=== PATIENT | female | born 1930 | race Caucasian/White ===

== ENCOUNTER 2016-08-15 05:24 | Inpatient (IN) | payer MEDICARE, BC ==
[2016-08-15] MEDS: SCOPOLAMINE 1.5MG PATCH TD SCH (05:59)
[2016-08-15] MEDS ORDERED: LACTATED RINGERS 1,000 ML IV ONE (06:00)
[2016-08-15] MEDS ORDERED: BUPIVACAINE LIPOSOME 20 ML SUS ONE (06:55)
[2016-08-15] MEDS ORDERED: BUPIVACAINE HCL 0.25% MPF 10 ML SOL INFIL ONE ×2 (06:55)
[2016-08-15] MEDS ORDERED: SODIUM CHLORIDE 20 ML 20 ML ONE (06:55)
[2016-08-15] MEDS ORDERED: LACTATED RINGERS 1,000 ML IV SCH (07:00)
[2016-08-15] MEDS ORDERED: DEXAMETHASONE 20 MG/5 ML (4 MG/ML SOL) ONE ×2 (07:31→07:34)
[2016-08-15] MEDS ORDERED: METOCLOPRAMIDE HYDROCHLORIDE 5 MG/ML SOL ONE (07:31)
[2016-08-15] MEDS ORDERED: ONDANSETRON HCL 4 MG/2 ML SOL ONE (07:31)
[2016-08-15] MEDS ORDERED: LIDOCAINE HCL 1% MPF SOL ONE (07:31)
[2016-08-15] MEDS ORDERED: MIDAZOLAM 2 MG/2 ML SOL ONE (07:31)
[2016-08-15] MEDS ORDERED: PROPOFOL 500 MG/50 ML EMU IV ONE (07:31)
[2016-08-15] MEDS ORDERED: KETAMINE HYDROCHLORIDE 50 MG/ML SOL ONE (07:34)
[2016-08-15] MEDS ORDERED: MORPHINE SULFATE 0.5 MG/ML SOL ONE (07:34)
[2016-08-15] MEDS ORDERED: CEFAZOLIN SODIUM 1 GM PDS ONE (08:26)
[2016-08-15] MEDS ORDERED: EPHEDRINE SULFATE 50 MG/ML SOL ONE (08:26)
[2016-08-15] MEDS ORDERED: PHENYLEPHRINE HYDROCHLORIDE 10 MG/ML SOL ONE (08:44)
[2016-08-15] MEDS: TRANEXAMIC ACID 100 MG/ML SOL ONE ×2 (09:48→09:55)
[2016-08-15] MEDS ORDERED: PROPOFOL 10 MG/ML EMU IV ONE (09:50)
[2016-08-15] MEDS ORDERED: DIAZEPAM 5 MG TAB PO PRN (10:06)
[2016-08-15] MEDS ORDERED: HYDROMORPHONE HCL 2 MG/ML 1 ML SOL IV PRN (10:06)
[2016-08-15] MEDS ORDERED: SODIUM CHLORIDE 0.9% 500 ML 500 ML IV PRN (10:06)
[2016-08-15] MEDS ORDERED: ZOLPIDEM TARTRATE 5 MG TAB PO PRN (10:06)
[2016-08-15] MEDS ORDERED: FLEET ENEMA PR PRN (10:06)
[2016-08-15] MEDS ORDERED: ONDANSETRON HCL 4 MG/2 ML SOL IV PRN (10:06)
[2016-08-15] MEDS ORDERED: BISACODYL 10 MG SUP PR PRN (10:06)
[2016-08-15] MEDS ORDERED: MAGNESIUM HYDROXIDE 30 ML SUS PO PRN (10:06)
[2016-08-15] MEDS ORDERED: ALUMINUM/MAGNESIUM 30 ML SUS PO PRN (10:06)
[2016-08-15] MEDS ORDERED: ONDANSETRON 4 MG ODT BU PRN (10:06)
[2016-08-15] MEDS ORDERED: CEFAZOLIN (PREMIX) 1 GM 1 GM/50 ML SOL IV SCH (10:15)
[2016-08-15] MEDS: SODIUM CHLORIDE 0.9% FLUSH 10 ML SOL IV SCH ×2 (11:51→18:56)
[2016-08-15] MEDS: CEFAZOLIN (PREMIX) 1 GM 1 GM/50 ML SOL IV SCH (16:10)
[2016-08-15] MEDS: PANTOPRAZOLE SODIUM 40 MG ECT PO SCH (20:15)
[2016-08-15] MEDS: GABAPENTIN 300 MG CAP PO SCH (20:15)
[2016-08-15] MEDS: SENNOSIDES A AND B 8.6 MG TAB PO SCH (20:15)
[2016-08-15] MEDS: ATORVASTATIN 10 MG TAB PO SCH (20:15)
[2016-08-15] MEDS: FLECAINIDE ACETATE 50 MG TAB PO SCH (20:16)
[2016-08-15] MEDS: METOPROLOL SUCCINATE 50 MG TER PO SCH (20:16)
[2016-08-15] MEDS: APAP/OXYCODONE 325/5 TAB PO PRN (20:21)
[2016-08-16] MEDS: CEFAZOLIN (PREMIX) 1 GM 1 GM/50 ML SOL IV SCH (00:43)
[2016-08-16] MEDS: SODIUM CHLORIDE 0.9% FLUSH 10 ML SOL IV SCH ×4 (01:21→20:46)
[2016-08-16] MEDS: LEVOTHYROXINE SODIUM 112 MCG TAB PO SCH (06:41)
[2016-08-16] MEDS: APAP/OXYCODONE 325/5 TAB PO PRN ×5 (06:44→21:46)
[2016-08-16 07:20] LABS: MEAN CORPUSCULAR HGB CONC 34.3 gm/dl (32.0-36.0)
[2016-08-16] MEDS: ENOXAPARIN 40 MG SOL SC SCH (09:03)
[2016-08-16] MEDS: LORATADINE 10 MG TAB PO SCH (09:03)
[2016-08-16] MEDS: PANTOPRAZOLE SODIUM 40 MG ECT PO SCH ×2 (09:03→20:47)
[2016-08-16] MEDS: FERROUS SULFATE 325 MG TAB PO SCH (09:03)
[2016-08-16] MEDS: HYDROCHLOROTHIAZIDE 25 MG TAB PO SCH (09:03)
[2016-08-16] MEDS: GABAPENTIN 300 MG CAP PO SCH ×2 (09:03→20:47)
[2016-08-16] MEDS: FLECAINIDE ACETATE 50 MG TAB PO SCH ×2 (09:03→20:48)
[2016-08-16] MEDS: WARFARIN SODIUM 2.5 MG TAB PO SCH (18:10)
[2016-08-16] MEDS: ATORVASTATIN 10 MG TAB PO SCH (20:46)
[2016-08-16] MEDS: SENNOSIDES A AND B 8.6 MG TAB PO SCH (20:47)
[2016-08-16] MEDS: METOPROLOL SUCCINATE 50 MG TER PO SCH (20:48)
[2016-08-17] MEDS: SODIUM CHLORIDE 0.9% FLUSH 10 ML SOL IV SCH ×3 (03:04→17:56)
[2016-08-17] MEDS ORDERED: PATIENT EDUCATION 1 MISC PRN (05:04)
[2016-08-17] MEDS: LEVOTHYROXINE SODIUM 112 MCG TAB PO SCH (06:57)
[2016-08-17] MEDS: APAP/OXYCODONE 325/5 TAB PO PRN (06:58)
[2016-08-17] MEDS: FLECAINIDE ACETATE 50 MG TAB PO SCH ×2 (08:54→21:16)
[2016-08-17] MEDS: GABAPENTIN 300 MG CAP PO SCH ×2 (08:54→21:15)
[2016-08-17] MEDS: PANTOPRAZOLE SODIUM 40 MG ECT PO SCH ×2 (08:54→21:15)
[2016-08-17] MEDS: ENOXAPARIN 40 MG SOL SC SCH (08:55)
[2016-08-17] MEDS: FERROUS SULFATE 325 MG TAB PO SCH (08:55)
[2016-08-17] MEDS: HYDROCHLOROTHIAZIDE 25 MG TAB PO SCH (08:55)
[2016-08-17] MEDS: LORATADINE 10 MG TAB PO SCH (08:55)
[2016-08-17] MEDS: ACETAMINOPHEN 325 MG PO PRN ×2 (11:23→20:06)
[2016-08-17] MEDS: WARFARIN SODIUM 2.5 MG TAB PO SCH (17:51)
[2016-08-17] MEDS: TRAMADOL HYDROCHLORIDE 50 MG TAB PO PRN (21:13)
[2016-08-17] MEDS: ATORVASTATIN 10 MG TAB PO SCH (21:14)
[2016-08-17] MEDS: SENNOSIDES A AND B 8.6 MG TAB PO SCH (21:16)
[2016-08-17] MEDS: METOPROLOL SUCCINATE 50 MG TER PO SCH (21:17)
[2016-08-18] MEDS: TRAMADOL HYDROCHLORIDE 50 MG TAB PO PRN ×2 (02:22→09:51)
[2016-08-18] MEDS: SODIUM CHLORIDE 0.9% FLUSH 10 ML SOL IV SCH ×2 (02:23→11:42)
[2016-08-18] MEDS: SCOPOLAMINE 1.5MG PATCH TD SCH (06:00)
[2016-08-18] MEDS: LEVOTHYROXINE SODIUM 112 MCG TAB PO SCH (07:22)
[2016-08-18 07:28] LABS: MEAN CORPUSCULAR HGB CONC 35.9 gm/dl (32.0-36.0)
[2016-08-18] MEDS: PANTOPRAZOLE SODIUM 40 MG ECT PO SCH (09:50)
[2016-08-18] MEDS: LORATADINE 10 MG TAB PO SCH (09:50)
[2016-08-18] MEDS: FERROUS SULFATE 325 MG TAB PO SCH (09:50)
[2016-08-18] MEDS: GABAPENTIN 300 MG CAP PO SCH (09:50)
[2016-08-18] MEDS: FLECAINIDE ACETATE 50 MG TAB PO SCH (09:50)
[2016-08-18] MEDS: HYDROCHLOROTHIAZIDE 25 MG TAB PO SCH (09:51)
[2016-08-18] MEDS: ENOXAPARIN 40 MG SOL SC SCH (09:59)
[2016-08-18 12:27] VITALS: RESP 20
[2016-08-18] MEDS: ACETAMINOPHEN 325 MG PO PRN (13:35)
[2016-08-18 15:21] VITALS: BP 159/65; PULSE 69; TEMP 97.6; O2SAT 97
== END 2016-08-18 13:30 | disposition swing bed (61) | DRG 470 ==
LOC: ACUTE CARE 05:24
PROVIDERS: ADMIT Orthopaedic Surgery; ATTEND Orthopaedic Surgery
PROC: F01ZDFZ Gait and/or Balance Assessment using Assistive, Adaptive, Supportive or Protective Equipment (ICD-10-PCS; 2016-08-15)
PROC: F01ZCZZ Transfer Assessment (ICD-10-PCS; 2016-08-15)
PROC: F01ZBZZ Bed Mobility Assessment (ICD-10-PCS; 2016-08-15)
PROC: F02Z1ZZ Dressing Assessment (ICD-10-PCS; 2016-08-15)
PROC: F02Z0ZZ Bathing/Showering Assessment (ICD-10-PCS; 2016-08-15)
PROC: 0SR9049 Replacement of Right Hip Joint with Ceramic on Polyethylene Synthetic Substitute, Cemented, Open Approach (ICD-10-PCS; principal; 2016-08-15 08:00)
DX: M16.11 Unilateral primary osteoarthritis, right hip (principal); Z96.641 Presence of right artificial hip joint; I48.2 Chronic atrial fibrillation; M85.88 Other specified disorders of bone density and structure, other site; E03.9 Hypothyroidism, unspecified; K21.9 Gastro-esophageal reflux disease without esophagitis; I10 Essential (primary) hypertension; R41.0 Disorientation, unspecified
CPT/HCPCS: 36415; 73501; 73502; 85027; 85049; 85610; 94150; 94640; 94760; 99070; J0690; J1100; J1650; J2250; J2275; J2405; J2765; A6219; A6232; A6402; J2001; J2704

== ENCOUNTER 2016-09-13 08:21 | Emergency (ER) | payer MEDICARE, BC ==
[2016-09-13 08:33] VITALS: TEMP 97.8
[2016-09-13 08:43] LABS: BASOPHILS % (AUTO) 1 % (0-3); EOSINOPHILS % (AUTO) 4 % (0-9); HEMATOCRIT 36 % (35-47); MEAN CORPUSCULAR HGB CONC 34.5 gm/dl (32.0-36.0); MEAN CORPUSCULAR VOLUME 82 fL (81-99); MONOCYTES % (AUTO) 11.3 % (0-12)
[2016-09-13 09:01] LABS: ALBUMIN 3.2 gm/dl (3.4-5.0); ALT 29 IU/L (14-63); CALCIUM 8.9 mg/dl (8.5-10.1); GLOM FILT RATE 55 mL/min (>60); POTASSIUM 3.7 mMol/L (3.5-5.1); SODIUM 142 mMol/L (136-145)
[2016-09-13] MEDS ORDERED: METOPROLOL TARTRATE 5 MG/5 ML SOL IV ONE ×2 (09:14→09:16)
[2016-09-13] MEDS ORDERED: SODIUM CHLORIDE 0.9% FLUSH 10 ML SOL IV PRN (09:23)
[2016-09-13] MEDS ORDERED: SODIUM CHLORIDE 0.9% 1000ML 1,000 ML IV ONE (09:42)
[2016-09-13] MEDS ORDERED: DILTIAZEM 5 MG/ML SOL IV ONE ×3 (09:55→11:28)
[2016-09-13 11:31] VITALS: BP 98/47; PULSE 82; RESP 20; O2SAT 92
== END 2016-09-13 12:50 | disposition home or self-care (01) | DRG 310 ==
LOC: ED 08:21
DX: I48.92 Unspecified atrial flutter (principal); Z79.01 Long term (current) use of anticoagulants
CPT/HCPCS: 80053; 84484; 85025; 85610; 93005; 99285

== ENCOUNTER 2016-09-27 10:20 | Emergency (ER) | payer MEDICARE, BC ==
[2016-09-27] MEDS ORDERED: SODIUM CHLORIDE 0.9% FLUSH 10 ML SOL IV PRN (10:24)
[2016-09-27] MEDS ORDERED: NITROGLYCERIN 0.4 MG TAB SL PRN (10:24)
[2016-09-27] MEDS ORDERED: ASPIRIN 81 MG CHEWABLE CTB PO STA (10:24)
[2016-09-27] MEDS ORDERED: ASPIRIN 81 MG CHEWABLE CTB ONE (10:25)
[2016-09-27 10:29] LABS: BASOPHILS % (AUTO) 0 % (0-3); EOSINOPHILS % (AUTO) 3 % (0-9); HEMATOCRIT 35 % (35-47); MEAN CORPUSCULAR HGB CONC 34.2 gm/dl (32.0-36.0); MEAN CORPUSCULAR VOLUME 84 fL (81-99); MONOCYTES % (AUTO) 10.2 % (0-12); NEUTROPHILS % (AUTO) 72.4 % (37-80)
[2016-09-27 10:45] LABS: GLOM FILT RATE 58 mL/min (>60); POTASSIUM 3.8 mMol/L (3.5-5.1); SODIUM 140 mMol/L (136-145)
[2016-09-27 12:49] VITALS: TEMP 97.6
[2016-09-27 12:51] VITALS: BP 160/49; PULSE 48; RESP 20; O2SAT 95
== END 2016-09-27 11:30 | disposition home or self-care (01) | DRG 313 ==
LOC: ED 10:20
DX: R07.9 Chest pain, unspecified (principal); R79.1 Abnormal coagulation profile; Z79.01 Long term (current) use of anticoagulants
CPT/HCPCS: 36415; 71010; 80048; 82550; 84484; 85025; 85610; 85730; 93005; 99284

== ENCOUNTER 2016-10-17 11:08 | Outpatient (CLI) | payer MEDICARE, BC ==
[2016-09-27 12:51] VITALS: O2SAT 95
== END 2016-10-17 11:09 | disposition home or self-care (01) | DRG 561 ==
LOC: CONVCARE 11:08
PROVIDERS: ATTEND Orthopaedic Surgery
DX: Z47.1 Aftercare following joint replacement surgery (principal); Z96.641 Presence of right artificial hip joint
CPT/HCPCS: 73502

== ENCOUNTER 2017-04-19 08:36 | Day surgery (SDC) | payer MEDICARE, BC ==
[~2017-04-19 08:36] MED LIST: LIDOCAINE HCL 1% MPF SOL ONE; PROPOFOL 500 MG/50 ML EMU IV ONE
[2017-04-19 09:50] VITALS: TEMP 97.1
[2017-04-19 10:36] VITALS: BP 122/53; PULSE 57; RESP 20; O2SAT 97
== END 2017-04-19 10:55 | disposition home or self-care (01) | DRG 379 ==
LOC: SURG 08:36
PROVIDERS: ATTEND Surgery
DX: K92.1 Melena (principal); K25.9 Gastric ulcer, unspecified as acute or chronic, without hemorrhage or perforation; K31.9 Disease of stomach and duodenum, unspecified; R10.32 Left lower quadrant pain; Z79.01 Long term (current) use of anticoagulants
CPT/HCPCS: 36415; 85610; J2001; J2704

== ENCOUNTER 2017-04-22 16:19 | Emergency (ER) | payer MEDICARE, BC ==
[2017-04-22] MEDS ORDERED: PANTOPRAZOLE SODIUM 40 MG/10 ML PDS IV ONE (16:53)
[2017-04-22 16:56] VITALS: TEMP 97.6
[2017-04-22] MEDS ORDERED: SODIUM CHLORIDE 0.9% 1000 ML SOL IV SCH (17:00)
[2017-04-22 17:06] LABS: HEMATOCRIT 23 % (35-47); MEAN CORPUSCULAR HGB CONC 34.3 gm/dl (32.0-36.0); MEAN CORPUSCULAR VOLUME 87 fL (81-99)
[2017-04-22 17:10] LABS: CALCIUM 9.2 mg/dl (8.5-10.1); POTASSIUM 4.2 mMol/L (3.5-5.1)
[2017-04-22] MEDS ORDERED: ONDANSETRON HCL 4 MG/2 ML SOL IV ONE (17:14)
[2017-04-22] MEDS ORDERED: MORPHINE SULFATE 10 MG/ML SOL IV ONE (17:15)
[2017-04-22] MEDS ORDERED: PANTOPRAZOLE SODIUM 40 MG/10 ML PDS ONE (17:16)
[2017-04-22] MEDS ORDERED: MORPHINE SULFATE 10 MG/ML SOL ONE (17:18)
[2017-04-22] MEDS ORDERED: ONDANSETRON HCL 4 MG/2 ML SOL ONE (17:18)
[2017-04-22 17:28] LABS: BASOPHILS % (MANUAL) 0 % (0-3); EOSINOPHILS % (MANUAL) 3 % (0-9); LYMPHOCYTES % (MANUAL) 11 % (10-50); NORMAL RBCS NORMAL RBCS
[2017-04-22 19:07] VITALS: BP 137/49; PULSE 61; RESP 26; O2SAT 97
== END 2017-04-22 18:58 | disposition short-term general hospital (02) | DRG 379 ==
LOC: ED 16:19
DX: K92.2 Gastrointestinal hemorrhage, unspecified (principal)
CPT/HCPCS: 74020; 80048; 85007; 85027; 85610; 85730; 93005; 96365; 96374; 96375; 99283; 99285; J2270; J2405

== ENCOUNTER 2017-08-28 19:52 | Emergency (ER) | payer MEDICARE, BC ==
[2017-08-28] MEDS ORDERED: ACETAMINOPHEN 500 MG 500 MG TAB PO ONE (20:42)
[2017-08-28] MEDS ORDERED: ACETAMINOPHEN 500 MG 500 MG TAB ONE (20:44)
[2017-08-28] MEDS ORDERED: TRAMADOL HYDROCHLORIDE 50 MG TAB ONE (21:32)
[2017-08-28] MEDS ORDERED: TRAMADOL HYDROCHLORIDE 50 MG TAB PO ONE (21:33)
[2017-08-28 22:12] VITALS: RESP 18; O2SAT 96
[2017-08-28 22:13] VITALS: BP 157/61; PULSE 57; TEMP 99.6
== END 2017-08-28 22:10 | disposition home or self-care (01) | DRG 563 ==
LOC: ED 19:52
DX: S52.302A Unspecified fracture of shaft of left radius, initial encounter for closed fracture (principal); M53.3 Sacrococcygeal disorders, not elsewhere classified; M54.5 Low back pain; S52.612A Displaced fracture of left ulna styloid process, initial encounter for closed fracture; W19.XXXA Unspecified fall, initial encounter
CPT/HCPCS: 72120; 73100; 99283; 99284; A9270-GY

== ENCOUNTER 2017-09-04 11:58 | Outpatient (CLI) | payer BC, MEDICARE ==
[2017-08-28 22:12] VITALS: O2SAT 96
== END 2017-09-04 11:59 | disposition home or self-care (01) | DRG 561 ==
LOC: CONVCARE 11:58
PROVIDERS: ATTEND Orthopaedic Surgery
DX: S52.502D Unspecified fracture of the lower end of left radius, subsequent encounter for closed fracture with routine healing (principal); M85.88 Other specified disorders of bone density and structure, other site; S52.615D Nondisplaced fracture of left ulna styloid process, subsequent encounter for closed fracture with routine healing
CPT/HCPCS: 73100

== ENCOUNTER 2017-10-02 11:09 | Outpatient (CLI) | payer MEDICARE, BC ==
[2017-08-28 22:12] VITALS: O2SAT 96
== END 2017-10-02 11:10 | disposition home or self-care (01) | DRG 561 ==
LOC: RAD 11:09
PROVIDERS: ATTEND Orthopaedic Surgery
DX: S52.502D Unspecified fracture of the lower end of left radius, subsequent encounter for closed fracture with routine healing (principal)
CPT/HCPCS: 73110

== ENCOUNTER 2017-10-23 06:48 | Emergency (ER) | payer MEDICARE, BC ==
[2017-10-23] MEDS ORDERED: SODIUM CHLORIDE 0.9% 500 ML SOL IV ONE ×2 (07:15→11:00)
[2017-10-23 07:37] LABS: ALBUMIN 3.2 gm/dl (3.4-5.0); BILIRUBIN,TOTAL 0.5 mg/dl (0.2-1.0); CALCIUM 8.4 mg/dl (8.5-10.1); CARBON DIOXIDE 27.7 mEq/L (21-32); CREATININE 1.22 mg/dl (0.60-1.00); POTASSIUM 4.1 mMol/L (3.5-5.1); TOTAL PROTEIN 6.9 gm/dl (6.4-8.2)
[2017-10-23 07:43] LABS: INR 1.91 (0.86-1.12)
[2017-10-23 07:44] LABS: ALCOHOL 0.005 gm/dl (0.000-0.08)
[2017-10-23 08:23] VITALS: RESP 18
[2017-10-23 09:15] LABS: BASOPHILS % (AUTO) 1 % (0-3); EOSINOPHILS % (AUTO) 4 % (0-9); HEMATOCRIT 36 % (35-47); HEMOGLOBIN 12.2 gm/dl (12.0-15.5); LYMPHOCYTES % (AUTO) 14.8 % (10-50); MEAN CORPUSCULAR HEMOGLOBIN 29.4 pg (27.0-32.0); MEAN CORPUSCULAR HGB CONC 33.6 gm/dl (32.0-36.0); MEAN CORPUSCULAR VOLUME 87 fL (81-99); MONOCYTES % (AUTO) 10.2 % (0-12); NEUTROPHILS % (AUTO) 69.8 % (37-80)
[2017-10-23] MEDS ORDERED: SODIUM CHLORIDE 0.9% 500 ML 500 ML IV ONE ×2 (09:30→10:40)
[2017-10-23 09:44] LABS: APPEARANCE,URINE Clear; BILIRUBIN,URINE NEGATIVE (NEGATIVE); COLOR,URINE Yellow; GLUCOSE, URINE (UA) NEGATIVE (NEGATIVE); KETONES,URINE NEGATIVE (NEGATIVE); LEUKOCYTE ESTERASE ,URINE 1+ (NEGATIVE); NITRATE,URINE NEGATIVE (NEGATIVE); OCCULT BLOOD,URINE NEGATIVE (NEG-TRACE)
[2017-10-23 09:58] LABS: AMPHETAMINES NEGATIVE (NEGATIVE); BACTERIA TRACE (< 1+); BARBITUATES NEGATIVE (NEGATIVE); BENZODIAZEPINES NEGATIVE (NEGATIVE); CANNABINOL(THC) NEGATIVE (NEGATIVE); COCAINE(COC) NEGATIVE (NEGATIVE); CRYSTALS NEGATIVE (0-3 AVE/HPF); METHADONE NEGATIVE (NEGATIVE); METHAMPHETAMINES NEGATIVE (NEGATIVE); OPIATES(OP13) NEGATIVE (NEGATIVE); OXYCODONE(OXY) NEGATIVE (NEGATIVE); PROPOXYPHENE(PPX) NEGATIVE (NEGATIVE); RBC,URINE NEG (0-3AV/HPF); TRICYCLIC ANTIDEPRESSANTS NEGATIVE (NEGATIVE)
[2017-10-23] MEDS ORDERED: MECLIZINE HYDROCHLORIDE 12.5 MG TAB ONE (10:50)
[2017-10-23] MEDS ORDERED: MECLIZINE HYDROCHLORIDE 12.5 MG TAB PO ONE (10:55)
[2017-10-23] MEDS ORDERED: CEFTRIAXONE 1 GM PDS 1 GM in SODIUM CHLORIDE 0.9% 50 ML 50 ML IV ONE (10:56)
[2017-10-23] MEDS ORDERED: SODIUM CHLORIDE 0.9% 50 ML 25 ML IV PRN (10:56)
[2017-10-23 12:13] VITALS: O2SAT 97
[2017-10-23 12:23] VITALS: BP 149/69; PULSE 62; TEMP 96
== END 2017-10-23 13:30 | disposition home or self-care (01) | DRG 149 ==
LOC: ED 06:48
DX: R42 Dizziness and giddiness (principal); I48.2 Chronic atrial fibrillation; E86.0 Dehydration; I95.1 Orthostatic hypotension
CPT/HCPCS: 36415; 70450; 80053; 80305; 80307; 81001; 85025; 85610; 85730; 87088; 93005; 96365; 96366; 99284; 99285; J0696; A9270-GY

== ENCOUNTER 2017-11-12 17:33 | Observation (INO) | payer MEDICARE, BC ==
[2017-11-12] MEDS ORDERED: SODIUM CHLORIDE 0.9% 1000ML 1,000 ML IV ONE ×2 (19:18→22:14)
[2017-11-12 19:45] LABS: BASOPHILS % (AUTO) 1 % (0-3); EOSINOPHILS % (AUTO) 3 % (0-9); HEMATOCRIT 29 % (35-47); HEMOGLOBIN 10.3 gm/dl (12.0-15.5); LYMPHOCYTES % (AUTO) 18.1 % (10-50); MEAN CORPUSCULAR HEMOGLOBIN 30.3 pg (27.0-32.0); MEAN CORPUSCULAR HGB CONC 35.3 gm/dl (32.0-36.0); MEAN CORPUSCULAR VOLUME 86 fL (81-99); MONOCYTES % (AUTO) 10.7 % (0-12); NEUTROPHILS % (AUTO) 67.2 % (37-80)
[2017-11-12 19:54] LABS: INR 2.63 (0.86-1.12)
[2017-11-12 20:02] LABS: ALBUMIN 3.1 gm/dl (3.4-5.0); ALKALINE PHOSPHATASE 81 IU/L (46-116); ALT 38 IU/L (14-63); AST 28 IU/L (15-37); BILIRUBIN,TOTAL 0.6 mg/dl (0.2-1.0); BLOOD UREA NITROGEN 23 mg/dl (7-18); CALCIUM 9.4 mg/dl (8.5-10.1); CARBON DIOXIDE 28.5 mEq/L (21-32); CHLORIDE 102 mMol/L (98-107); GLUCOSE 90 mg/dl (74-106); POTASSIUM 3.8 mMol/L (3.5-5.1); SODIUM 139 mMol/L (136-145); TOTAL PROTEIN 6.9 gm/dl (6.4-8.2); TROP I < 0.017 ng/ml (0.000-0.056)
[2017-11-12 20:29] LABS: APPEARANCE,URINE Clear; BILIRUBIN,URINE NEGATIVE (NEGATIVE); COLOR,URINE Yellow; GLUCOSE, URINE (UA) NEGATIVE (NEGATIVE); KETONES,URINE NEGATIVE (NEGATIVE); LEUKOCYTE ESTERASE ,URINE 2+ (NEGATIVE); NITRATE,URINE NEGATIVE (NEGATIVE); OCCULT BLOOD,URINE NEGATIVE (NEG-TRACE); UROBILINOGEN,URINE 0.2 (0.2-1.0 EU)
[2017-11-12 20:39] LABS: BACTERIA RARE (< 1+); CRYSTALS NEGATIVE (0-3 AVE/HPF); EPITHELIAL CELLS 0-2 (SQUAMOUS); RBC,URINE 0-1 (0-3AV/HPF)
[2017-11-12 21:55] VITALS: RESP 18
[2017-11-13] MEDS ORDERED: VITAMIN K PO SCH (08:30)
[2017-11-13] MEDS ORDERED: ACETAMINOPHEN 325 MG PO PRN (08:42)
[2017-11-13] MEDS ORDERED: LORATADINE 10 MG TAB PO PRN (08:42)
[2017-11-13] MEDS ORDERED: NITROGLYCERIN 0.4 MG TAB SL PRN (08:42)
[2017-11-13] MEDS ORDERED: AMIODARONE 200 MG TAB PO SCH (08:45)
[2017-11-13] MEDS ORDERED: PANTOPRAZOLE SODIUM 40 MG ECT PO SCH (09:00)
[2017-11-13] MEDS ORDERED: ALUMINUM/MAGNESIUM 30 ML SUS PO PRN (09:00)
[2017-11-13] MEDS ORDERED: HYDROCHLOROTHIAZIDE 25 MG TAB PO SCH (09:00)
[2017-11-13] MEDS ORDERED: LEVOTHYROXINE SODIUM 50 MCG TAB PO SCH (09:00)
[2017-11-13] MEDS: METRONIDAZOLE 250 MG TAB PO SCH ×2 (10:07→15:15)
[2017-11-13 15:56] VITALS: BP 122/48; PULSE 63; TEMP 98.4; O2SAT 96
[2017-11-13] MEDS ORDERED: SPIRONOLACTONE 25 MG TAB PO SCH (18:00)
[2017-11-13] MEDS ORDERED: METOPROLOL SUCCINATE 50 MG TER PO SCH (21:00)
[2017-11-13] MEDS ORDERED: ATORVASTATIN 10 MG TAB PO SCH (21:00)
== END 2017-11-13 17:35 | disposition home or self-care (01) | DRG 641 ==
LOC: ED 17:33 → ACUTE CARE 21:20
PROVIDERS: ADMIT Family Medicine; ATTEND Family Medicine
DX: E86.0 Dehydration (principal); I48.91 Unspecified atrial fibrillation; K92.2 Gastrointestinal hemorrhage, unspecified; R42 Dizziness and giddiness; Z79.01 Long term (current) use of anticoagulants; K21.9 Gastro-esophageal reflux disease without esophagitis
CPT/HCPCS: 36415; 80053; 81001; 82272; 84484; 85018; 85025; 85610; 87088; 93005; 96365; 96366; 99219; 99283; A9270-GY

== ENCOUNTER 2017-11-15 12:26 | Emergency (ER) | payer MEDICARE, BC ==
[2017-11-15 13:17] LABS: BASOPHILS % (AUTO) 1 % (0-3); EOSINOPHILS % (AUTO) 3 % (0-9); HEMATOCRIT 26 % (35-47); LYMPHOCYTES % (AUTO) 14.9 % (10-50); MEAN CORPUSCULAR HEMOGLOBIN 29.8 pg (27.0-32.0); MEAN CORPUSCULAR HGB CONC 34.1 gm/dl (32.0-36.0); MEAN CORPUSCULAR VOLUME 87 fL (81-99); MONOCYTES % (AUTO) 11.7 % (0-12); NEUTROPHILS % (AUTO) 70.1 % (37-80)
[2017-11-15 13:25] LABS: INR 1.18 (0.86-1.12)
[2017-11-15 13:32] LABS: BILIRUBIN,TOTAL 0.5 mg/dl (0.2-1.0); CALCIUM 8.7 mg/dl (8.5-10.1); CARBON DIOXIDE 26.1 mEq/L (21-32); CREATININE 1.28 mg/dl (0.60-1.00); POTASSIUM 3.8 mMol/L (3.5-5.1); TOTAL PROTEIN 6.4 gm/dl (6.4-8.2)
[2017-11-15] MEDS ORDERED: SODIUM CHLORIDE 0.9% 1000ML 1,000 ML IV SCH (13:45)
[2017-11-15 16:14] VITALS: TEMP 97.8
[2017-11-15 16:18] VITALS: BP 127/57; PULSE 62; RESP 18; O2SAT 97
== END 2017-11-15 15:35 | disposition home or self-care (01) | DRG 641 ==
LOC: ED 12:26
DX: E86.0 Dehydration (principal); I48.91 Unspecified atrial fibrillation; I10 Essential (primary) hypertension
CPT/HCPCS: 80053; 85025; 85610; 96365; 99283; 99284